=== PATIENT | female | born 1990 | race Caucasian/White ===

== ENCOUNTER 2017-06-26 07:32 | Emergency (ER) | payer OTHER ==
[2017-06-26 07:47] VITALS: BMI 34.4
[2017-06-26 10:19] LABS: BASO % 0.4 % (0-2.0); EOS % 0.7 % (0-4.5); MCH 29.8 pg (25.7-33.7); MCHC 33.7 g/dl (32.0-36.0); MEAN CELL VOLUME 88.4 fl (80-96); MEAN PLT VOLUME 9.4 fl (7.5-11.1); NEUT % 76.2 % (42.8-82.8); PLATELET COUNT 231 K/MM3 (134-434); RDW 13.1 % (11.6-15.6)
--- NOTE | 2017-06-26 10:23 | PDOC ---
History of Present Illness - General Chief Complaint: Pain, Acute Stated Complaint: GENERALIZED PAIN/ Time Seen by Provider: 06/26/17 09:07 - History of Present Illness Initial Comments: 06/26/17 10:17 "The patient is a 26 year old female , with no significant past medical history who presents to the emergency department with lower right abdominal pain for about 4 days. The patient reports her pain is worse with walking and is often sharp in nature. The patient notes her LMP was in December, but she is normally very irregular. Pt had positive UPT this Friday and has not had any care yet. She denies any vaginal bleeding. She denies recent fevers, chills, headache or dizziness. She denies recent nausea, vomit, diarrhea or constipation. She denies recent dysuria, frequency, urgency or hematuria. She denies recent chest pain or shortness of breath. Allergies: NKA Past surgical history: appendectomy 1 year ago Social history: Nonsmoker. Denies EtOH use and recreational drug use. Past History - Past Medical History Allergies/Adverse Reactions: Allergies Allergy/AdvReac Type Severity Reaction Status Date / Time Penicillins Allergy Verified 06/26/17 07:41 Home Medications: Ambulatory Orders NK [No Known Home Medication] 06/26/17 COPD: No - Surgical History Appendectomy: Yes - Reproductive History Is Patient Now?: Yes (#): 1 Para: 0 Therapeutic (s) & number: No Spontaneous : 0 - Immunization History Immunization Up to Date: Yes - Suicide/Smoking/Psychosocial Hx Smoking History: Never smoked Have you smoked in the past 12 months: No Number of Cigarettes Smoked Daily: 2 Information on smoking cessation initiated: No 'Breaking Loose' booklet given: 08/30/15 Hx Alcohol Use: No Drug/Substance Use Hx: No Substance Use Type: None Hx Substance Use Treatment: No Review of Systems - Review of Systems Comments:: 06/26/17 10:18 "GENERAL/CONSTITUTIONAL: No fever or chills. No weakness. HEAD, EYES, EARS, NOSE AND THROAT: No change in vision. No ear pain or discharge. No sore throat. CARDIOVASCULAR: No chest pain or shortness of breath. RESPIRATORY: No cough, wheezing, or hemoptysis. GASTROINTESTINAL: +right abdominal pain. No nausea, vomiting, diarrhea or constipation. GENITOURINARY: No dysuria, frequency, or change in urination. MUSCULOSKELETAL: No joint or muscle swelling or pain. No neck or back pain. SKIN: No rash NEUROLOGIC: No headache, vertigo, loss of consciousness, or change in strength/ sensation. ENDOCRINE: No increased thirst. No abnormal weight change. HEMATOLOGIC/LYMPHATIC: No anemia, easy bleeding, or history of blood clots. ALLERGIC/IMMUNOLOGIC: No hives or skin allergy. " *Physical Exam - Vital Signs Last Vital Signs Temp Pulse Resp BP Pulse Ox 98.4 F 83 16 126/58 98 06/26/17 07:42 06/26/17 07:42 06/26/17 07:42 06/26/17 07:42 06/26/17 07:42 - Physical Exam Comments: 06/26/17 10:18 "GENERAL: Awake, alert, and fully oriented, in no acute distress HEAD: No signs of trauma EYES: PERRLA, EOMI, sclera anicteric, conjunctiva clear ENT: Auricles normal inspection, hearing grossly normal, nares patent, oropharynx clear without exudates. Moist mucosa NECK: Nontender, no stepoffs, Normal ROM, supple, no lymphadenopathy, JVD, or masses LUNGS: Breath sounds equal, clear to auscultation bilaterally. No wheezes, and no crackles HEART: Regular rate and rhythm, normal S1 and S2, no murmurs, rubs or gallops ABDOMEN: + RLQ tenderness, negative ross's, normoactive bowel sounds. No guarding, no rebound. No masses : no CMT, no CVAT, os closed, no bleeding or discharge EXTREMITIES: Normal range of motion, no edema. No clubbing or cyanosis. No cords, erythema, or tenderness NEUROLOGICAL: Cranial nerves II through XII intact. 5/5 strength and sensation in all extremities, Normal speech, normal gait SKIN: Warm, Dry, normal turgor, no rashes or lesions noted. " ED Treatment Course - LABORATORY CBC & Chemistry Diagram: 06/26/17 10:10 06/26/17 10:10 - RADIOLOGY Radiology Studies Ordered: Category Date Time Status TRANSVAGINAL ULTRASOUND US [US] Stat Ultrasound 06/26/17 09:33 Ordered Medical Decision Making - Medical Decision Making 06/26/17 10:20 26 F with positive UPT at home, unknown gestational age, presenting with lower abdominal pain and mild RLQ tenderness. Pt reports prior appendectomy 1 year ago. Will r/o ectopic with TVUS. - Labs, T&S, beta HCG - TVUS - UA, UCx - OB f/u 06/26/17 11:20 US shows single IUP at 24 weeks gestation. Pt informed of results. Agrees to f/u with grocery packer for care, as this is a desired . Pt to be sent to L&D for heart monitoring, non-stress test I discussed the physical exam findings, ancillary test results and final diagnoses with the patient. I answered all of the patient's questions. The patient was satisfied with the care received and felt comfortable with the discharge plan and treatment plan. The patient agrees to follow up with the primary care physician within 24-72 hours. *DC/Admit/Observation/Transfer Diagnosis at time of Disposition: Abdominal pain during - Discharge Dispostion Disposition: HOME Condition at time of disposition: Stable - Referrals Referrals: Venecia Sams MD [Staff Physician] - Amilcar Epstein MD [Staff Physician] - - Patient Instructions Printed Discharge Instructions: DI for -- Discomforts and Remedies Additional Instructions: Your ultrasound showed that you are 24 weeks . You MUST follow up with an grocery packer to have proper care. Please report immediately to the labor and delivery floor NOW to have your baby monitored. If you experience worsening pain, bleeding, or any other concerning symptoms, return to the ER immediately. Otherwise, follow up with an grocery packer within 1 week. Call the number provided to make an appointment with our clinic. discharge to home follow up for care at [facility] - appointment made Wednesday 07/04 at 1000 - Post Discharge Activity - Attestations Physician Attestion: 06/26/17 11:29 I, Dr. Ji Saeed MD, attest that this document has been prepared under my direction and personally reviewed by me in its entirety. I further attest, that it accurately reflects all work, treatment, procedures and medical decision -making performed by me.
[2017-06-26 10:38] LABS: ALBUMIN 2.9 g/dl (3.4-5.0); ALK PHOS 63 U/L (45-117); ANION GAP 9 (8-16); BILIRUBIN,TOTAL 0.2 mg/dL (0.2-1.0); CALCIUM 8.4 mg/dL (8.5-10.1); CO2 23 mmol/L (21-32); CREATININE 0.4 mg/dL (0.55-1.02); GLUCOSE,RANDOM 81 mg/dL (74-106); SGOT/AST 14 U/L (15-37); SGPT/ALT 21 U/L (12-78); TOT PROT 6.6 g/dl (6.4-8.2)
[2017-06-26 11:46] LABS: URINE APPEARANCE SLCLOUDY; URINE BILIRUBIN NEGATIVE (NEGATIVE); URINE BLOOD NEGATIVE (NEGATIVE); URINE COLOR YELLOW; URINE GLUCOSE (UA) NEGATIVE (NEGATIVE); URINE KETONE NEGATIVE (NEGATIVE); URINE LEUK ESTERASE NEGATIVE (NEGATIVE); URINE NITRITE NEGATIVE (NEGATIVE); URINE PROTEIN NEGATIVE (NEGATIVE); URINE UROBILINOGEN NEGATIVE mg/dL (0.2-1.0)
[2017-06-26 13:13] VITALS: BP 130/60; PULSE 85; TEMP 98.2
[2017-06-26 14:09] LABS: URINE LEUK ESTERASE Negative (NEGATIVE)
== END 2017-06-26 13:00 | disposition home or self-care (01) ==
LOC: JER 07:32
CPT/HCPCS: 36415; 76815-TC; 80053; 81003; 84702; 85025; 86850; 86900; 86901; 87086; 99283-25

== ENCOUNTER 2017-10-13 14:15 | Inpatient (IN) | payer OTHER ==
[2017-10-13] MEDS: DEXTROSE 5%-LACTATED RINGERS 1,000 ML IV SCH (14:45)
[2017-10-13] MEDS ORDERED: CLINDAMYCIN PHOSPHATE 600 MG/4 ML VIAL ONE ×2 (15:16→15:17)
[2017-10-13] MEDS ORDERED: CLINDAMYCIN 900 MG PREMIX IVPB 900 MG/50 ML BAG IVPB ONE (15:30)
[2017-10-13 15:36] LABS: BASO % 0.2 % (0-2.0); EOS % 0.7 % (0-4.5); HEMATOCRIT 33.9 % (32.4-45.2); HEMOGLOBIN 11.7 GM/dL (10.7-15.3); LYMPH % 13.7 % (8-40); MCH 30.1 pg (25.7-33.7); MCHC 34.5 g/dl (32.0-36.0); MEAN CELL VOLUME 87.3 fl (80-96); MEAN PLT VOLUME 9.8 fl (7.5-11.1); MONO % 6.6 % (3.8-10.2); NEUT % 78.8 % (42.8-82.8); PLATELET COUNT 243 K/MM3 (134-434); RBC 3.88 M/mm3 (3.60-5.2); RDW 13.1 % (11.6-15.6)
[2017-10-13 15:50] LABS: INR 0.94 (0.82-1.09); PROTHROMBIN TIME (PATIENT) 10.6 SEC (9.98-11.88)
[2017-10-13 15:52] LABS: ACTIVATED PTT 24.9 SECONDS (26.9-34.4)
[2017-10-13 15:56] VITALS: BMI 38.5
[2017-10-13 15:57] LABS: ANION GAP 7 (8-16); BLOOD UREA NITROGEN 8 mg/dL (7-18); CALCIUM 8.9 mg/dL (8.5-10.1); CHLORIDE 109 mmol/L (98-107); CO2 23 mmol/L (21-32); CREATININE 0.5 mg/dL (0.55-1.02); GLUCOSE,RANDOM 122 mg/dL (74-106); POTASSIUM 3.6 mmol/L (3.5-5.1); SODIUM 139 mmol/L (136-145)
[2017-10-13 17:01] LABS: COCAINE, UR NEGATIVE ng/ml (CUTOFF=300); METHADONE, UR NEGATIVE ng/ml (CUTOFF=300); OPIATES, URI NEGATIVE ng/ml (CUTOFF=300); PHENCYCLIDINE,URINE NEGATIVE ng/ml (CUTOFF=25); URINE AMPHETAMINES NEGATIVE ng/ml (CUTOFF=500); URINE BARBITURATES NEGATIVE ng/ml (CUTOFF=200); URINE BENZODIAZEPINES NEGATIVE ng/ml (CUTOFF=200)
[2017-10-13] MEDS ORDERED: PROMETHAZINE HCL 25 MG/1 ML VIAL IVPB ONE (21:00)
[2017-10-13] MEDS ORDERED: BUTORPHANOL TARTRATE 1 MG/ML VIAL IVPB ONE (21:00)
[2017-10-13] MEDS ORDERED: DINOPROSTONE 10 MG VAGINAL SUPPOSITORY VG ONE (21:01)
--- NOTE | 2017-10-13 21:10 | HP ---
Admitting History and Physical - Admission Chief Complaint: srom, 3 pm, gbs pos, History of Present Illness: 27 y/o P0 at 39 plus weeks comes this after noon with srom at 130 pm. She is a late registrant at 30 weeks. Thus far, pnc has been fine. She is gbs pos and received clinda x 2 now. Examined and 2cm, long--will place cervidil. r/b given. 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: Alzheimer's, CVA, Dementia, Migraine, Multiple Sclerosis, Peripheral Neuropathy, Parkinson's, Seizure, Syncope, TIA, Vertigo, Other Cardiovascular: No: AFIB, Aneurysm, Aortic Insufficiency, Aortic Stenosis, CAD, CHF, Deep Vein Thrombosis, HTN, Hyperlipdemia, [place], Mitral Insufficiency, Mitral Stenosis, Murmur, Pulmonary Hypertension, Other Pulmonary: No: Asthma, Bronchitis, Cancer, COPD, O2 Dependent, Pneumonia, Previously Intubated, Pulmonary Embolus, Pulmonary Fibrosis, Sleep Apnea, Other Hepatobiliary: No: Cirrhosis, Cholelithiasis, Cholecystitis, Choledocholithiasis , Hepatitis A, Hepatitis B, Hepatitis C, Other Renal/: No: Renal Failure, Renal Inusuff, BPH, Cancer, Hematuria, Hemodialysis , Neurogenic Bladder, Renal Calculi, UTI, Other ...LMP: 01/04/15 ...: 2 ...Para: 0 Heme/Onc: No: Anemia, B12 Deficiency, Bleeding Disorder, Cancer, Current Chemotherapy, Current Radiation Therapy, Hemochromatosis, Hypercoaguable State, Myeloproliferative Synd, Sickle Cell Disease, Sickle Cell Trait, Thrombocytopenia, Other Infectious Disease: No: AIDS, C-Diff, Herpes Zoster, HIV, MRSA, STD's, Tuberculosis, VREF, Other Psych: No: Addictions, Anxiety, Bipolar, Depression, Panic, Psychosis, Schizophrenia, Other Musculoskeletal: Yes: Other (fracture to right ankle as a youth). No: Bursitis , Chronic low back pain, Hemiparesis, Hemiplegia, Osteoarthritis, Paraplegia Rheumatology: No: Fibromyalgia, Gout, Lupus, Rheumatoid Arthritis, Sarcoidosis, Vasculitis, Other Endocrine: No: Roberto's Disease, Bayside's Disease, Diabetes Insipidus, Diabetes Mellitus, Hyperparathyroidism, Hyperthyroidism, Hypothyroidism, Osteopenia, SIADH, Other Dermatology: No: Basal Cell, Cellulitis, Eczema, Melanoma, Psoriasis, Squamous Cell, Other - Past Surgical History Past Surgical History: Yes: None - Advance Directives Advance Directives: No: Living Will, Health Care Proxy, DNR, Organ Donor, Tissue Donor, MOLST - Smoking History Smoking history: Never smoked Have you smoked in the past 12 months: No Aproximately how many cigarettes per day: 2 - Alcohol/Substance Use Hx Alcohol Use: No Home Medications - Allergies Allergies/Adverse Reactions: Allergies Allergy/AdvReac Type Severity Reaction Status Date / Time Penicillins Allergy Verified 10/13/17 17:25 - Home Medications Home Medications: Ambulatory Orders Ferrous Sulfate [Iron] 325 mg PO DAILY 10/13/17 Vitamins (Sjr) - 1 tab PO DAILY 10/13/17 Review of Systems - Review of Systems Constitutional: reports: No Symptoms Eyes: reports: No Symptoms HENT: reports: No Symptoms Neck: reports: No Symptoms Cardiovascular: reports: No Symptoms Respiratory: reports: No Symptoms Gastrointestinal: reports: No Symptoms Genitourinary: reports: No Symptoms Breasts: reports: No Symptoms Reported Musculoskeletal: reports: No Symptoms Integumentary: reports: No Symptoms Neurological: reports: No Symptoms Endocrine: reports: No Symptoms Hematology/Lymphatic: reports: No Symptoms Physical Examination Vital Signs: Vital Signs Temperature 98.4 F 10/13/17 20:00 Pulse Rate 100 H 10/13/17 20:00 Respiratory Rate 18 10/13/17 20:00 Blood Pressure 112/55 10/13/17 20:00 O2 Sat by Pulse Oximetry (%) Constitutional: Yes: Well Nourished Eyes: Yes: WNL HENT: Yes: WNL Neck: Yes: WNL Cardiovascular: Yes: WNL Respiratory: Yes: WNL Gastrointestinal: Yes: WNL ...Rectal Exam: Yes: WNL Breast(s): Yes: WNL Musculoskeletal: Yes: WNL Extremities: Yes: WNL Integumentary: Yes: WNL Neurological: Yes: WNL ...Motor Strength: WNL (exam 2 cm, long/-3 cat 1) Labs: CBC, BMP 10/13/17 15:20 10/13/17 15:20 Assessment/Plan as above cervidil placed 9pm continue protocol
[2017-10-13] MEDS: CLINDAMYCIN 600MG PREMIX IVPB 600 MG/50 ML BAG IVPB SCH (21:45)
[2017-10-14] MEDS ORDERED: DEXTROSE 5%-LACTATED RINGERS 1,000 ML IV ONE (01:00)
[2017-10-14] MEDS ORDERED: BUTORPHANOL TARTRATE 1 MG/ML VIAL ONE ×4 (01:41→08:07)
[2017-10-14] MEDS ORDERED: PROMETHAZINE HCL 25 MG/1 ML VIAL ONE ×2 (01:42→08:07)
[2017-10-14] MEDS: CLINDAMYCIN 600MG PREMIX IVPB 600 MG/50 ML BAG IVPB SCH ×3 (03:45→18:11)
[2017-10-14] MEDS ORDERED: PROMETHAZINE HCL 25 MG/1 ML VIAL IVPB ONE (06:20)
[2017-10-14] MEDS ORDERED: BUTORPHANOL TARTRATE 1 MG/ML VIAL IVPB ONE (06:20)
[2017-10-14] MEDS ORDERED: FENTANYL/BUPIVACAINE/NS/PF - PCEA - 50 ML DISP.SYRIN EP ONE ×2 (07:55→10:35)
[2017-10-14] MEDS ORDERED: BUPIVACAINE HCL/PF 0.25% (2.5MG/ML) 10 ML VIAL ONE (07:57)
[2017-10-14] MEDS ORDERED: LIDO 2%/EPI 1:200000 PRESRVFRE (20 ML SDVIAL) ONE (07:58)
[2017-10-14] MEDS ORDERED: ELECTROLYTE-148 SOLN 1,000 ML IV ONE (08:00)
[2017-10-14] MEDS: DEXTROSE 5%-LACTATED RINGERS 1,000 ML IV SCH (08:30)
[2017-10-14] MEDS ORDERED: OXYTOCIN 30 UNITS in 0.9% NS 30 UNIT/500 ML INFUS.BAG IVPB ONE (08:30)
--- NOTE | 2017-10-14 10:35 | PN ---
Progress Note (short form) - Note Progress Note: cx 6 cm 80 vx -1 mr, fhr cat 1, wants epidural, contraction q 3 min
[2017-10-14] MEDS ORDERED: ELECTROLYTE-148 SOLN 1,000 ML IV SCH (10:45)
[2017-10-14] MEDS ORDERED: NALOXONE HCL 0.4 MG/ML VIAL IVPUSH PRN (12:56)
--- NOTE | 2017-10-14 12:59 | PN ---
Progress Note (short form) - Note Progress Note: cx 8 cm 100 vx 0, fhr cat1, regular contraction
[2017-10-14] MEDS ORDERED: FENTANYL/BUPIVACAINE/NS/PF - PCEA - 50 ML DISP.SYRIN EP SCH ×2 (13:00→13:28)
[2017-10-14] MEDS ORDERED: LIDOCAINE HCL 1% PRESERVATIVE FREE - 30ML VIAL ONE (15:07)
[2017-10-14] MEDS ORDERED: oxyCODONE HCL 5 MG TABLET PO PRN (15:34)
[2017-10-14] MEDS ORDERED: BENZOCAINE 20% 57 GM BOTTLE TP PRN (15:34)
[2017-10-14] MEDS ORDERED: METHYLERGONOVINE MALEATE 0.2 MG/1 ML AMP IM PRN (15:34)
[2017-10-14] MEDS ORDERED: WITCH HAZEL 50% (TUCKS) 40 PAD/JAR PAD TP PRN (15:34)
[2017-10-14] MEDS ORDERED: BENZOCAINE 28 GM HEMORRHOIDAL OINTMENT TP PRN (15:34)
[2017-10-14] MEDS ORDERED: BISACODYL 10 MG SUPP.RECT RC PRN (15:34)
[2017-10-14] MEDS ORDERED: D5W-LR W/ 20 UNITS OXYTOCIN 1,000 ML IV SCH (15:45)
[2017-10-14] MEDS ORDERED: OXYTOCIN 20 UNITS in 0.9% NS 20 UNIT/1,000 ML INFUS.BAG IV SCH (15:45)
[2017-10-14] MEDS ORDERED: IBUPROFEN 600 MG TABLET (FP) PO ONE (15:53)
[2017-10-14] MEDS ORDERED: ACETAMINOPHEN 325 MG TABLET (FP) ONE (15:54)
[2017-10-14 16:15] LABS: ARTERIAL BLOOD GAS BASE EXCESS -4.4 meq/l (-2-2); ARTERIAL BLOOD GAS PCO2 41.7 mmHg (35-45); ARTERIAL BLOOD GAS pH 7.32 (7.35-7.45)
[2017-10-14 16:19] LABS: ARTERIAL BLD GAS O2 SATURATION 53.5 % (90-98.9); ARTERIAL BLOOD GAS PO2 24.2 mmHg (80-100)
[2017-10-14 16:24] LABS: VENOUS PC02 53.5 mmHg (38-52)
[2017-10-14 16:25] LABS: VENOUS PH 7.23 (7.32-7.42)
[2017-10-14] MEDS: ACETAMINOPHEN 325 MG TABLET (FP) PO PRN (16:25)
[2017-10-14] MEDS: IBUPROFEN 600 MG TABLET (FP) PO PRN (16:25)
[2017-10-14] MEDS: FERROUS SO4 325 MG TABLET (FP) PO SCH (17:58)
[2017-10-15] MEDS: ACETAMINOPHEN 325 MG TABLET (FP) PO PRN ×5 (01:01→18:57)
[2017-10-15] MEDS: IBUPROFEN 600 MG TABLET (FP) PO PRN ×5 (01:02→18:55)
[2017-10-15] MEDS: FERROUS SO4 325 MG TABLET (FP) PO SCH ×2 (08:07→18:57)
[2017-10-15 09:00] LABS: BASO % 0.4 % (0-2.0); EOS % 0.6 % (0-4.5); HEMATOCRIT 34.5 % (32.4-45.2); HEMOGLOBIN 11.4 GM/dL (10.7-15.3); LYMPH % 21.1 % (8-40); MCH 29.4 pg (25.7-33.7); MCHC 33.2 g/dl (32.0-36.0); MEAN CELL VOLUME 88.7 fl (80-96); MEAN PLT VOLUME 9.6 fl (7.5-11.1); MONO % 4.6 % (3.8-10.2); NEUT % 73.3 % (42.8-82.8); PLATELET COUNT 238 K/MM3 (134-434); RBC 3.88 M/mm3 (3.60-5.2); RDW 13.8 % (11.6-15.6); WHITE BLOOD COUNT 13.7 K/mm3 (4.0-10.0)
[2017-10-15] MEDS: PRENATAL VITAMINS W/ FOLIC ACID TABLET (FP) PO SCH (09:47)
[2017-10-15] MEDS ORDERED: SENNOSIDES/DOCUSATE COMBO (SENNA PLUS) TABLET (UD) PO PRN (22:00)
[2017-10-16] MEDS: ACETAMINOPHEN 325 MG TABLET (FP) PO PRN ×3 (02:22→14:02)
[2017-10-16] MEDS: IBUPROFEN 600 MG TABLET (FP) PO PRN ×2 (02:22→08:12)
[2017-10-16] MEDS: FERROUS SO4 325 MG TABLET (FP) PO SCH ×2 (08:10→17:08)
[2017-10-16] MEDS: PRENATAL VITAMINS W/ FOLIC ACID TABLET (FP) PO SCH (10:48)
[2017-10-16 12:36] VITALS: BP 125/63; PULSE 78; TEMP 98.2
--- NOTE | 2017-10-16 14:04 | DS ---
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: Vital Signs Temperature 98.2 F 10/16/17 12:35 Pulse Rate 78 10/16/17 12:35 Respiratory Rate 20 10/16/17 10:00 Blood Pressure 125/63 10/16/17 12:35 O2 Sat by Pulse Oximetry (%) 98 10/14/17 15:00 Constitutional: Yes: Well Nourished, No Distress, Calm Eyes: Yes: WNL, Conjunctiva Clear, EOM Intact HENT: Yes: WNL, Atraumatic, Normocephalic Neck: Yes: WNL, Supple, Trachea Midline Cardiovascular: Yes: WNL, Regular Rate and Rhythm Respiratory: Yes: WNL, Regular, CTA Bilaterally Gastrointestinal: Yes: WNL ...Rectal Exam: Yes: WNL Renal/: Yes: WNL ....Post : Yes: Uterus firm, Uterus non-tender, Slight lochia rubra Breast(s): Yes: WNL Musculoskeletal: Yes: WNL Extremities: Yes: WNL Edema: Yes Edema: LLE: Trace, RLE: Trace Integumentary: Yes: WNL Neurological: Yes: WNL, Alert, Oriented ...Motor Strength: WNL Psychiatric: Yes: WNL, Alert, Oriented Labs: CBC, BMP 10/15/17 08:00 10/13/17 15:20 Delivery - Delivery Vaginal Delivery: Spontaneous (no complication) Type of Anesthesia: Epidural Episiotomy/Laceration: Right Mediolateral EBL (cc): 300 Delivery, Single - Stages of Labor Date 1st Stage Initiatied: 10/14/17 Time 1st Stage Initiated: 02:00 Date 2nd Stage Initiated: 10/14/17 Time 2nd Stage Initiated: 14:10 Date of Delivery: 10/14/17 Time of Delivery: 15:19 Time Placenta Delivered: 15:25 Placenta: Yes: Spontaneous - Condition of Preventive Medicine Physician/Cigar Packer Present: No Gender: Male Weight: 6 lb 14 oz Position: Left, OA Total Hours ROM (Hrs/Mins): 25h 39m - 1 Minute Total Score: 9 5 Minutes Total Score: 9 - Feeding Plan Initial Plan: Elected not to breastfeed exclusively throughout hospitalization Discharge Summary Reason For Visit: LABOR Procedures: Principal: Hospital Course: not complicated Condition: Good - Instructions Diet, Activity, Other Instructions: return to clinic in 4-6 weeks. call [facility] for appointment. [phone] Disposition: HOME - Home Medications Comprehensive Discharge Medication List: Ambulatory Orders Ferrous Sulfate [Iron] 325 mg PO DAILY 10/13/17 Vitamins (Sjr) - 1 tab PO DAILY 10/13/17
== END 2017-10-16 18:42 | disposition home or self-care (01) | DRG 560 ==
LOC: JLDR 14:15 → J3W 10-14 17:28
PROVIDERS: ADMIT Obstetrics & Gynecology; ATTEND Obstetrics & Gynecology
PROC: 3E0P7VZ Introduction of Hormone into Female Reproductive, Via Natural or Artificial Opening (ICD-10-PCS; 2017-10-13)
PROC: 10E0XZZ Delivery of Products of Conception, External Approach (ICD-10-PCS; principal; 2017-10-14)
PROC: 0W8NXZZ Division of Female Perineum, External Approach (ICD-10-PCS; 2017-10-14)
DX: O80 Encounter for full-term uncomplicated delivery (principal); Z22.330 Carrier of Group B streptococcus; Z3A.39 39 weeks gestation of pregnancy; Z37.0 Single live birth
CPT/HCPCS: 36415; 36600; 59409; 80048; 80307; 82803; 85025; 85610; 85730; 86593; 86850; 86900; 86901

== ENCOUNTER 2018-10-05 09:06 | Emergency (ER) | payer SELFPAY ==
[2018-10-05 09:27] VITALS: BP 112/65; PULSE 87; TEMP 98.1; BMI 35.4
[2018-10-05] MEDS ORDERED: ACETAMINOPHEN 325 MG TABLET (FP) PO ONE (10:04)
--- NOTE | 2018-10-05 10:17 | PDOC ---
Attending Attestation - Resident Resident Name: Yumiko Swartz - ED Attending Attestation I have performed the following: I have examined & evaluated the patient, The case was reviewed & discussed with the resident, I agree w/resident's findings & plan, Exceptions are as noted - HPI HPI: 10/05/18 10:17 28 yo F presenting to the ER with a complaint of pelvic pain x 2 weeks Located in the lower abdomen, worse with attempting to void or have a bowel movement No fevers or chills No dysuria or malodorous urine No nausea or vomiting Pt thought her pain might be due to IUD She was seen in [facility] last week and IUD was removed (she was last sexually active l week ago, pain was 06/15, treated with motrin and warm bath) No prior episodes like this 10/05/18 10:30 - Physicial Exam PE: 10/05/18 10:11 GENERAL: The patient is in no acute distress. ENT: Ears normal, nares patent, oropharynx clear without exudates. Moist mucous membranes. NECK: Normal range of motion, supple, no nuchal rigidity LUNGS: Breath sounds equal, clear to auscultation bilaterally. No wheezes, and no crackles. HEART:Regular rate and rhythm, normal S1 and S2 without murmur, rub or gallop. ABDOMEN: Soft, nontender, suprapubic tenderness to palpation PELVIC EXAM: per Dr Swartz EXTREMITIES: Normal range of motion, no edema. NEUROLOGICAL: Cranial nerves II through XII grossly intact. Normal speech. No focal neurological deficits. SKIN: Warm, Dry, normal turgor, no rashes or lesions noted. 10/05/18 10:33 - Medical Decision Making 10/05/18 10:33 Pt presents with pelvic pain DD includes but is not limited to: UTI, Ruptured ovarian cyst, pelvic fluid, Less likely appendicitis given chronicity of symptoms Less likely PID with no reported CMT Will do: Labs UA TV US Will re assess 10/05/18 11:07 Laboratory Tests 10/05/18 10/05/18 10/05/18 10:14 10:14 10:35 WBC 9.4 Hgb 12.3 Hct 36.8 Plt Count 248 BUN 10 Creatinine 0.6 Urine Blood Negative Urine Nitrite Negative Ur Leukocyte Esterase Negative TV-US pending 10/05/18 13:01 US right ovarian cyst, Left ovarian cyst No free fluid No torsion Will discharge to home 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 We check your blood work and urine which did not show any abnormalities. We also did imaging which did not show anything abnormal. We will give you a call and let you know if the cultures show any signs of an infection growing. Please take tylenol or Motrin for the pain, do not exceed the maximum dose as stated on the bottle. We found that you have hemorrhoids, to treat this you can buy creams from the pharmacy such as [facility]. Please make an appointment to follow up with an OBGYN, the referral will be provided for you. Please return to the Emergency Department if you have any nausea, vomiting, blood in your urine, blood in your stool, chest pain, shortness of breath, fever or chills. - Post Discharge Activity
[2018-10-05] MEDS ORDERED: ACETAMINOPHEN 325 MG TABLET (FP) ONE (10:23)
[2018-10-05 10:27] LABS: HEMATOCRIT 36.8 % (32.4-45.2); HEMOGLOBIN 12.3 GM/dL (10.7-15.3); MCH 28.7 pg (25.7-33.7); MCHC 33.3 g/dl (32.0-36.0); MEAN CELL VOLUME 86.4 fl (80-96); MEAN PLT VOLUME 9.6 fl (7.5-11.1); PLATELET COUNT 248 K/MM3 (134-434); RBC 4.26 M/mm3 (3.60-5.2); RDW 14.4 % (11.6-15.6); WHITE BLOOD COUNT 9.4 K/mm3 (4.0-10.0)
[2018-10-05 10:48] LABS: URINE APPEARANCE CLEAR; URINE BILIRUBIN NEGATIVE (NEGATIVE); URINE COLOR YELLOW; URINE GLUCOSE (UA) NEGATIVE (NEGATIVE); URINE KETONE TRACE (NEGATIVE); URINE LEUK ESTERASE NEGATIVE (NEGATIVE); URINE NITRITE NEGATIVE (NEGATIVE); URINE PROTEIN NEGATIVE (NEGATIVE)
[2018-10-05 10:59] LABS: ALBUMIN 3.4 g/dl (3.4-5.0); ALK PHOS 57 U/L (45-117); ANION GAP 4 MMOL/L (8-16); BILIRUBIN,TOTAL 0.5 mg/dL (0.2-1); BLOOD UREA NITROGEN 10 mg/dL (7-18); CALCIUM 8.6 mg/dL (8.5-10.1); CHLORIDE 108 mmol/L (98-107); CO2 24 mmol/L (21-32); CREATININE 0.6 mg/dL (0.55-1.3); GLUCOSE,RANDOM 120 mg/dL (74-106); POTASSIUM 3.8 mmol/L (3.5-5.1); SGOT/AST 15 U/L (15-37); SGPT/ALT 16 U/L (13-61); SODIUM 136 mmol/L (136-145); TOT PROT 7.1 g/dl (6.4-8.2)
--- NOTE | 2018-10-05 11:00 | PDOC ---
History of Present Illness - General Chief Complaint: Vaginal Sxs Stated Complaint: ABD PAIN Time Seen by Provider: 10/05/18 09:34 - History of Present Illness Initial Comments: 10/05/18 10:52 Patient is a 28 y/o female with no past medical history who presents for vaginal discomfort, urinary burning, and discomfort with defecating. Patient has been having these symptoms for the last two weeks. She first noticed it after she had cramping after having sex. A few days later she had sex again and had vaginal pain. Last friday she had her IUD taken out thinking it might be causing some of her symptoms. She reports that when she is urinating she has burning, but notes no hematuria or discharge. When she needs to defecate she notes it hurts when she strains but it also hurts when she is not straining. She denies past history of STD's. Denies fever, chills, nausea, vomiting, chest pain, or shortness of breath. Past History - Past Medical History Allergies/Adverse Reactions: Allergies Allergy/AdvReac Type Severity Reaction Status Date / Time Penicillins Allergy Verified 10/13/17 17:25 Home Medications: Ambulatory Orders NK [No Known Home Medication] 10/05/18 Asthma: No Cancer: No Cardiac Disorders: No COPD: No Diabetes: No HTN: No Seizures: No Thyroid Disease: No - Surgical History Appendectomy: Yes - Reproductive History (#): 1 Para: 0 Therapeutic (s) & number: No Spontaneous : 0 - Immunization History Immunization Up to Date: Yes - Suicide/Smoking/Psychosocial Hx Smoking History: Never smoked Have you smoked in the past 12 months: No Number of Cigarettes Smoked Daily: 2 Information on smoking cessation initiated: No 'Breaking Loose' booklet given: 08/30/15 Hx Alcohol Use: No Drug/Substance Use Hx: No Substance Use Type: None Hx Substance Use Treatment: No Review of Systems - Review of Systems Constitutional: No: Chills, Fever HEENTM: No: Eye Pain Respiratory: No: Cough, Shortness of Breath Cardiac (ROS): No: Chest Pain ABD/GI: No: Diarrhea, Nausea, Vomiting : Yes: Dysuria, Pain. No: Discharge, Frequency, Hematuria Musculoskeletal: No: Back Pain, Gout Neurological: No: Headache, Numbness *Physical Exam - Vital Signs Last Vital Signs Temp Pulse Resp BP Pulse Ox 98.1 F 87 18 112/65 99 10/05/18 09:22 10/05/18 09:22 10/05/18 09:22 10/05/18 09:22 10/05/18 09:22 - Physical Exam Comments: 10/05/18 10:57 GENERAL: A&O x3, no acute distress HEART: RRR, no murmurs, rubs, or gallops LUNGS: CTAL B/L ABDOMEN: soft, non tender, non distended : slight tenderness with finger inspection, no erythema or swelling noted, mild thin white discharge, no blood on glove RECTAL: external hemorrhoid, small internal felt, no blood on glove EXTREMITIES; no pitting edema SKIN: no skin ulcers or rashes noted ED Treatment Course - LABORATORY CBC & Chemistry Diagram: 10/05/18 10:14 10/05/18 10:14 - ADDITIONAL ORDERS Additional order review: 10/05/18 10:14 RBC 4.26 MCV 86.4 MCHC 33.3 RDW 14.4 MPV 9.6 - RADIOLOGY Radiology Studies Ordered: Category Date Time Status TRANSVAGINAL ULTRASOUND US [US] Stat Ultrasound 10/05/18 10:04 Ordered - Medications Given in the ED: ED Medications Discontinued Medications Generic Name Dose Route Start Last Admin Trade Name Freq PRN Reason Stop Dose Admin Acetaminophen 975 mg 10/05/18 10:04 10/05/18 10:24 Tylenol - PO 10/05/18 10:05 975 mg ONCE ONE Administration Medical Decision Making - Medical Decision Making 10/05/18 11:00 f/u CBC, CMP, UA, GC swab, vaginal culture tylenol for the pain Vaginal US 10/05/18 15:29 US showed two cysts, no abnormalitits LABS WNL, will f/u for cultures discussed with patient importance to follow up as an outpatient *DC/Admit/Observation/Transfer Diagnosis at time of Disposition: Vaginal pain - Discharge Dispostion Disposition: HOME Condition at time of disposition: Improved - Referrals Referrals: Venecia Sams MD [Staff Physician] - Gwen Hendrix MD [Staff Physician] - - Patient Instructions Printed Discharge Instructions: DI for Pelvic Pain, Chronic Pelvic Pain-Female Additional Instructions: You came to the emergency department for pain. We check your blood work and urine which did not show any abnormalities. We also did imaging which did not show anything abnormal. We will give you a call and let you know if the cultures show any signs of an infection growing. Please take tylenol or Motrin for the pain, do not exceed the maximum dose as stated on the bottle. We found that you have hemorrhoids, to treat this you can buy creams from the pharmacy such as [facility]. Please make an appointment to follow up with an OBGYN, the referral will be provided for you. Please return to the Emergency Department if you have any nausea, vomiting, blood in your urine, blood in your stool, chest pain, shortness of breath, fever or chills. - Post Discharge Activity
== END 2018-10-05 13:07 | disposition home or self-care (01) ==
LOC: JER 09:06
DX: R10.2 Pelvic and perineal pain (principal)
CPT/HCPCS: 36415; 76830-TC; 80053; 81003; 84703; 85027; 87070; 87205; 87491; 87591; 87661; 99282-25

== ENCOUNTER 2019-03-23 09:50 | Emergency (ER) | payer OTHER ==
[2019-03-23 10:03] VITALS: BP 117/78; PULSE 62; TEMP 98.5; BMI 35.4
--- NOTE | 2019-03-23 10:30 | PDOC ---
History of Present Illness - General Chief Complaint: Chest Pain Stated Complaint: CHEST PAIN Time Seen by Provider: 03/23/19 10:13 History Source: Patient Exam Limitations: No Limitations - History of Present Illness Initial Comments: 03/23/19 10:40 28 y/o female presents to the ED with c/o mid sternal chest tightness that began last night when lying down. The pt states pain initially started in the upper abd below the rib cage and then went up to her chest. pt states symptoms present x 2 hours and went away withut interventions. Pt denied associated s/s including n/v/dizziness/sob, or palpitations. Pt denies recent travel, illness, injury, or cough. The pt states diet varies ad last night had Wendys. Is this a multiple visit Asthma Patient?: No Timing/Duration: intermittent, resolved prior to arrival Severity: mild Associated Symptoms: reports: chest pain Past History - Travel Traveled outside of the country in the last 30 days: No Close contact w/someone who was outside of country & ill: No - Past Medical History Allergies/Adverse Reactions: Allergies Allergy/AdvReac Type Severity Reaction Status Date / Time Penicillins Allergy Verified 10/13/17 17:25 Home Medications: Ambulatory Orders metroNIDAZOLE [Flagyl -] 500 mg PO BID 7 Days #14 tablet 10/07/18 Asthma: No Cancer: No Cardiac Disorders: No COPD: No Diabetes: No HTN: No Seizures: No Thyroid Disease: No - Surgical History Appendectomy: Yes - Reproductive History (#): 1 Para: 0 Therapeutic (s) & number: No Spontaneous : 0 - Immunization History Immunization Up to Date: Yes - Suicide/Smoking/Psychosocial Hx Smoking History: Never smoked Have you smoked in the past 12 months: No Number of Cigarettes Smoked Daily: 2 Information on smoking cessation initiated: No 'Breaking Loose' booklet given: 08/30/15 Hx Alcohol Use: No Drug/Substance Use Hx: No Substance Use Type: None Hx Substance Use Treatment: No Patient Lives Alone: No Lives with/in: spouse/SO Review of Systems - Review of Systems Able to Perform ROS?: Yes Constitutional: No: Symptoms Reported HEENTM: No: Symptoms Reported Respiratory: No: Symptoms reported Cardiac (ROS): Yes: Chest Pain ABD/GI: No: Symptoms Reported : No: Symptoms Reported Musculoskeletal: No: Symptoms Reported Integumentary: No: Symptoms Reported Neurological: No: Symptoms reported Endocrine: No: Symptoms Reported Hematologic/Lymphatic: No: Symptoms Reported *Physical Exam - Vital Signs Last Vital Signs Temp Pulse Resp BP Pulse Ox 98.5 F 62 17 117/78 98 03/23/19 09:54 03/23/19 09:54 03/23/19 09:54 03/23/19 09:54 03/23/19 09:54 - Physical Exam General Appearance: Yes: Nourished, Appropriately Dressed. No: Apparent Distress HEENT: negative: Pale Conjunctivae Neck: positive: Normal Thyroid Respiratory/Chest: positive: Lungs Clear, Normal Breath Sounds. negative: Chest Tender, Respiratory Distress, Accessory Muscle Use Cardiovascular: positive: Regular Rhythm, Regular Rate. negative: Murmur Gastrointestinal/Abdominal: positive: Soft. negative: Tenderness Integumentary: positive: Normal Color, Warm, Moist Neurologic: positive: Motor Strength 5/5 (ambulatory) Heart Score/ECG Review - ECG Intrepretation Rhythm: Regular Rhythm (rate 58, rate 58. No st elevation depression , intervals are regular) Medical Decision Making - Medical Decision Making 03/23/19 10:48 CC: episodic chest pain last night x 2 hrs. Ate Homa's 1 hour before s/s began , No interventions taken and s/s resolved. Asymptomatic upon arrival ExaM: ekg reviewed, vss, no reproducible pain Plan: Discharge home with recommendations to avoid fried foods and this may have been likely do to reflux ( esophageal reflux) *DC/Admit/Observation/Transfer Diagnosis at time of Disposition: Chest pain - Discharge Dispostion Disposition: HOME Condition at time of disposition: Improved - Referrals - Patient Instructions Printed Discharge Instructions: DI for Atypical Chest Pain, Gastroesophageal Reflux Disease (Alternative Therapy) Additional Instructions: Please observe for recurrent symptoms and please avoid spicy, greasy, and fried foods. - Post Discharge Activity
--- NOTE | 2019-03-23 16:29 | EKG ---
Test Reason : Blood Pressure : / mmHG Vent. Rate : 058 BPM Atrial Rate : 058 BPM P-R Int : 104 ms QRS Dur : 092 ms QT Int : 404 ms P-R-T Axes : 025 008 021 degrees QTc Int : 396 ms POOR DATA QUALITY, INTERPRETATION MAY BE ADVERSELY AFFECTED SINUS BRADYCARDIA WITH SHORT WY OTHERWISE NORMAL ECG NO PREVIOUS ECGS AVAILABLE Confirmed by Christian Hoskins ([id number]) on 03/23/2019 4:28:37 PM Referred By: Confirmed By:Christian Hoskins
== END 2019-03-23 11:14 | disposition home or self-care (01) ==
LOC: JER 09:50
DX: R07.9 Chest pain, unspecified (principal)
CPT/HCPCS: 93005; 93010; 99282-25

== ENCOUNTER 2019-06-28 06:41 | Day surgery (SDC) | payer OTHER ==
[2019-06-25 08:53] VITALS: BMI 35.4
[2019-06-28] MEDS ORDERED: DEXAMETHASONE SOD PHOSPHATE 4 MG/1 ML VIAL ONE ×2 (07:16→09:44)
[2019-06-28] MEDS ORDERED: LIDOCAINE HCL 2% (20ML MULTI-DOSE VIAL) ONE (07:17)
[2019-06-28] MEDS ORDERED: PROPOFOL 20 ML ONE ×4 (08:23→09:07)
[2019-06-28] MEDS ORDERED: MIDAZOLAM HCL 2 MG/2 ML SINGLE DOSE VIAL ONE (08:23)
[2019-06-28] MEDS ORDERED: LIDOCAINE HCL/PF 2% SDV 5ML VIAL ONE (08:24)
[2019-06-28] MEDS ORDERED: LIDOCAINE HCL 2% (50ML VIAL) SQ ONE (08:49)
[2019-06-28] MEDS ORDERED: BUPIVACAINE HCL/PF 0.5% (5 MG/ML) 30 ML VIAL IJ ONE (08:49)
[2019-06-28] MEDS ORDERED: ACETAMINOPHEN 325 MG TABLET (FP) PO PRN (09:13)
[2019-06-28] MEDS ORDERED: ONDANSETRON 4 MG/2 ML VIAL IVPUSH PRN (09:13)
[2019-06-28] MEDS ORDERED: oxyCODONE HCL 5 MG TABLET PO PRN ×2 (09:13)
[2019-06-28] MEDS ORDERED: DEXAMETHASONE SOD PHOSPHATE 4 MG/1 ML VIAL NR ONE ×2 (09:33→09:49)
--- NOTE | 2019-06-28 10:33 | OP ---
Operative Note - Note: Operative Date: 06/28/19 Pre-Operative Diagnosis: Hammertoe 4 bilateral, 3 right foot Operation: Arthroplasty right 3rd and 4th toe, left 4th toe, k-wire fixation, tenotomy and capsulotomy Implants: 0.045 k-wires Surgeon: Deysi Caballero Labor Relations Specialist: Karl Smith Anesthesiologist/SPORTS TEAM MANAGER: Tati Ramirez Anesthesia: MAC Specimens Removed: Skin and bone Estimated Blood Loss (mls): 1 Operative Report Dictated: No
[2019-06-28 10:53] VITALS: TEMP 97.3
[2019-06-28 12:41] VITALS: BP 110/70; PULSE 68
--- NOTE | 2019-06-29 14:22 | PATH ---
Surgical Pathology Report Patient Name: BRANNON FRANK [facility]. Rec. #: [id number] /Age/Gender: 1990 (Age: 28) / F Account: [id number] Location: [facility] SURGICAL Taken: 06/28/2019 Received: 06/28/2019 Reported: 06/29/2019 Physicians: Deysi Caballero DPM Specimen(s) Received A: SKIN AND BONE, THIRD AND FOURTH TOES, FOOT, RIGHT B: SKIN AND BONE, FOURTH TOE, FOOT, LEFT Clinical History Bilateral hammertoe Final Diagnosis A. SKIN AND BONE, THIRD AND FOURTH TOES, FOOT, RIGHT, ARTHROPLASTY: BONE WITH FATTY MARROW. SKIN WITHOUT SIGNIFICANT PATHOLOGIC FINDINGS. B. SKIN AND BONE, FOURTH TOE, FOOT, LEFT, ARTHROPLASTY: BONE WITH FATTY MARROW. SKIN WITHOUT SIGNIFICANT PATHOLOGIC FINDINGS. Electronically Signed Yumiko Magaña M.D. Gross Description A. Received in formalin labeled "right foot skin and bones third and fourth toes," are 2 hutson-yellow portions of bone measuring 0.9 x 0.8 x 0.4 cm and 1.0 x 0.9 x 0.5 cm. Also received within the same container are 2 hutson, elliptical portions of skin measuring 2.2 x 0.3 cm and 2.6 x 0.4 cm. Funeral Attendant sections are submitted in one cassette, following decalcification. B. Received in formalin labeled "left foot skin and bone fourth toe," is a 3.0 x 0.3 cm huston, elliptical, unoriented portion of skin as well as a 0.9 x 0.8 x 0.5 cm hutson-yellow portion of bone. Funeral Attendant sections are submitted in one cassette, following decalcification. /06/28/2019 saudi/06/28/2019
== END 2019-06-28 12:40 | disposition home or self-care (01) ==
LOC: JASU-SURG 06:41
PROVIDERS: ATTEND Podiatrist Foot Surgery
PROC: 0SRP0JZ Replacement of Right Toe Phalangeal Joint with Synthetic Substitute, Open Approach (ICD-10-PCS; 2019-06-28)
PROC: 0SRP0JZ Replacement of Right Toe Phalangeal Joint with Synthetic Substitute, Open Approach (ICD-10-PCS; principal; 2019-06-28 08:30)
DX: M20.41 Other hammer toe(s) (acquired), right foot (principal); M20.42 Other hammer toe(s) (acquired), left foot
CPT/HCPCS: 73630-TC-LT; 73630-TC-RT-FY; 84703; 88304-TC; 88311-TC

== ENCOUNTER 2019-07-30 16:30 | Emergency (ER) | payer OTHER ==
[2019-07-30 16:49] VITALS: BMI 35.4
[2019-07-30] MEDS ORDERED: ONDANSETRON *ODT* 4 MG TABLET SL ONE (16:56)
--- NOTE | 2019-07-30 16:56 | PDOC ---
Rapid Medical Evaluation Chief Complaint: Nausea/Vomiting Medical Evaluation: Allergies Allergy/AdvReac Type Severity Reaction Status Date / Time Penicillins Allergy Verified 07/30/19 16:46 Vital Signs Temp Pulse Resp BP Pulse Ox 99 F 98 H 16 130/74 99 07/30/19 16:46 07/30/19 16:46 07/30/19 16:46 07/30/19 16:46 07/30/19 16:46 07/30/19 16:55 Pt c/o:n /v/d x 1 day Pt on brief exam:vss, in nad Pt ordered for: urine and zofran pt to proceed to the ED Discharge Disposition - Diagnosis Nausea vomiting and diarrhea - Discharge Dispostion Disposition: HOME Condition at time of disposition: Stable - Prescriptions Prescriptions: Ondansetron [Zofran *Odt*] 4 mg SL Q6H PRN #30 od.tablet PRN Reason: Nausea And/Or Vomiting - Referrals - Patient Instructions Printed Discharge Instructions: DI for Viral Gastroenteritis -- Adult, Gastroenteritis Diet Additional Instructions: Discharge Instructions: You were seen in the emergency department for nausea, vomiting, and diarrhea. Your symptoms are most likely caused by a viral infection, and you should feel better within a week without any additional treatment. Home Care and Follow Up: - You have been precribed a nausea medication called Zofran (ondansetron). This may be taken every 6 hours if needed for nausea and/or vomiting. - Make sure you are drinking plenty of fluids while you are sick. Increase your normal fluid intake. It is OK if you do not feel like eating as long as you are staying well hydrated - You may use medications such as acetaminophen (Tylenol) 650-1000mg or ibuprofen (Advil, Motrin) 400-600mg every 6 hours as needed for pain or fever over 101F - Make sure you are washing your hands frequently to prevent spreading the infection. - You should feel better within a week, though cough can sometimes last longer. If you are not feeling better in a week, follow up with your primary doctor. If you need to see a new doctor, you have been referred to the [facility] [place]. - Seek immediate care if you have worsening symptoms, you are unable to stay hydrated, you develop high fevers over 104F that do not come down with medication, or you have any other medical emergency. - Post Discharge Activity
[2019-07-30] MEDS ORDERED: ONDANSETRON 4 MG/2 ML VIAL IVPUSH ONE (17:34)
[2019-07-30] MEDS ORDERED: SODIUM CHLORIDE 0.9% 500 ML INFUS.BAG IV ONE (17:34)
[2019-07-30] MEDS ORDERED: FAMOTIDINE 20 MG/50 ML IVPB 20 MG/50 ML MG IVPB ONE ×2 (17:34→17:36)
--- NOTE | 2019-07-30 17:34 | PDOC ---
History of Present Illness - General Chief Complaint: Nausea/Vomiting Stated Complaint: VOMITING Time Seen by Provider: 07/30/19 16:56 - History of Present Illness Initial Comments: Susan Reyna is a 28yo otherwise healthy woman who presents with nausea, vomiting, diarrhea, and cramping abdominal pain since this morning. She states that yesterday when she went to bed, she was in her normal state of health. This morning, she had diffuse cramping pain when she woke. 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 She says that she was shivering during the early afternoon. She did also go to work in the afternoon as well but states that she started to have a headache and felt weak. Throughout the day, she also had 3 episodes of NBNB vomiting and 5 episodes of watery diarrhea. Ms Reyna has no known sick contacts, no recent travel, no change in diet or unusual foods, and does not feel she could be . Past History - Past Medical History Allergies/Adverse Reactions: Allergies Allergy/AdvReac Type Severity Reaction Status Date / Time Penicillins Allergy Verified 07/30/19 16:46 Home Medications: Ambulatory Orders Ondansetron [Zofran *Odt*] 4 mg SL Q6H PRN #30 od.tablet 07/30/19 Anemia: No Asthma: No Cancer: No Cardiac Disorders: No CVA: No COPD: No CHF: No Dementia: No Diabetes: No GI Disorders: No Disorders: No HTN: No Hypercholesterolemia: No Liver Disease: No Seizures: No Thyroid Disease: No - Surgical History Appendectomy: Yes - Reproductive History (#): 1 Para: 0 Therapeutic (s) & number: No Spontaneous : 0 - Immunization History Immunization Up to Date: Yes - Psycho Social/Smoking Cessation Hx Smoking History: Never smoked Have you smoked in the past 12 months: No Number of Cigarettes Smoked Daily: 0 'Breaking Loose' booklet given: 08/30/15 Hx Alcohol Use: Yes (occaassional) Drug/Substance Use Hx: No Substance Use Type: None Hx Substance Use Treatment: No Review of Systems - Review of Systems Comments:: General: No fevers, no chills, no weight or appetite change, no malaise HEENT: No changes in vision, no changes in hearing, no congestion, no sore throat CV: No chest pain, no palpitations, no LE edema Pulm: No SOB, no cough, no wheezing GI: See HPI : No frequency, no urgency, no dysuria Musc: No back pain, no joint swelling, no recent injury Skin: No rash, no lesions, no erythema Endo: No excessive thirst, no heat/cold intolerance Heme: No unusual bruising or bleeding, no swollen glands Neuro: No syncope, no numbness/tingling, no focal weakness Vasc: No claudication Psych: No recent change in mood, no SI or HI *Physical Exam - Vital Signs Last Vital Signs Temp Pulse Resp BP Pulse Ox 99 F 98 H 16 130/74 99 07/30/19 16:46 07/30/19 16:46 07/30/19 16:46 07/30/19 16:46 07/30/19 16:46 - Physical Exam General: Comfortable, no acute distress HEENT: Atraumatic, PERRL, EOMI, MMM, voice normal, normal neck ROM Cards: RRR, no murmur appreciated Pulm: Comfortable on room air, clear to auscultation bilaterally Abd: Soft, No tenderness w/ palpation though diffuse mild discomfort, nondistended, no rigidity, no guarding Ext: Atraumatic. No LE edema. ROM intact. WWP Skin: Normal color, no rashes or lesions Neuro: A&Ox3, CN grossly intact, normal speech, motor/sensory grossly intact and symmetric Psych: Mood appropriate to situation ED Treatment Course - LABORATORY CBC & Chemistry Diagram: 07/30/19 17:29 07/30/19 17:29 Medical Decision Making - Medical Decision Making 07/30/19 17:34 Susan Reyna is a 28yo otherwise healthy woman who presents with headache, nausea, vomiting, diarrhea, and cramping abdominal pain since this morning. 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 - Most likely viral illness such as gastroenteritis. No focal tenderness suggesting cholecystitis, appendicitis, pancreatitis. Low suspicion for ectopic as main complaint is nausea/vomiting/diarrhea rather than pain. No respiratory symptoms or fever suggesting influenza. - CBC, CMP, lactate, lipase, UA, UCx, urine preg - IVF, zofran, famotidine, acetaminophen 07/30/19 18:37 - Pt feels significantly improved. No longer has abdominal pain, headache, or nausea - UA negative for infection, but 3+ ketones. Likely has not been eating, may be mildly dehydarted. Will reassess after 1L IVF, but may need 2nd bolus - Remainder of labs pending. 07/30/19 19:11 - Labs unremarkable - Will PO challenge 07/30/19 20:21 - Successfully drank juice, ate crackers - HR still elevated at 110. Will give 2nd bolus and reassess Discussed with Sarah Saeed and Phillip Wilson PGY2 Discharge - Discharge Information Problems reviewed: Yes Clinical Impression/Diagnosis: Nausea vomiting and diarrhea Condition: Stable Disposition: HOME - Admission No - Additional Discharge Information Prescriptions: Ondansetron [Zofran *Odt*] 4 mg SL Q6H PRN #30 od.tablet PRN Reason: Nausea And/Or Vomiting - Follow up/Referral - Patient Discharge Instructions Patient Printed Discharge Instructions: DI for Viral Gastroenteritis -- Adult, Gastroenteritis Diet Additional Instructions: Discharge Instructions: You were seen in the emergency department for nausea, vomiting, and diarrhea. Your symptoms are most likely caused by a viral infection, and you should feel better within a week without any additional treatment. Home Care and Follow Up: - You have been precribed a nausea medication called Zofran (ondansetron). This may be taken every 6 hours if needed for nausea and/or vomiting. - Make sure you are drinking plenty of fluids while you are sick. Increase your normal fluid intake. It is OK if you do not feel like eating as long as you are staying well hydrated - You may use medications such as acetaminophen (Tylenol) 650-1000mg or ibuprofen (Advil, Motrin) 400-600mg every 6 hours as needed for pain or fever over 101F - Make sure you are washing your hands frequently to prevent spreading the infection. - You should feel better within a week, though cough can sometimes last longer. If you are not feeling better in a week, follow up with your primary doctor. If you need to see a new doctor, you have been referred to the [facility] care [place]. - Seek immediate care if you have worsening symptoms, you are unable to stay hydrated, you develop high fevers over 104F that do not come down with medication, or you have any other medical emergency. - Post Discharge Activity
[2019-07-30] MEDS ORDERED: ONDANSETRON 4 MG/2 ML VIAL ONE (17:35)
[2019-07-30] MEDS ORDERED: ACETAMINOPHEN 1000 MG/100 ML VIAL (NON FORMULARY) IVPB ONE (17:36)
[2019-07-30] MEDS ORDERED: ACETAMINOPHEN INJECTION 100 ML IVPB ONE (17:38)
[2019-07-30 18:08] LABS: URINE APPEARANCE CLEAR; URINE BILIRUBIN NEGATIVE (NEGATIVE); URINE COLOR YELLOW; URINE GLUCOSE (UA) NEGATIVE (NEGATIVE); URINE KETONE 3+ (NEGATIVE); URINE LEUK ESTERASE NEGATIVE (NEGATIVE); URINE NITRITE NEGATIVE (NEGATIVE); URINE PROTEIN NEGATIVE (NEGATIVE); URINE UROBILINOGEN 0.2 mg/dL (0.2-1.0)
--- NOTE | 2019-07-30 18:16 | PDOC ---
Attending Attestation - Resident Resident Name: SteveLisa - ED Attending Attestation I have performed the following: I have examined & evaluated the patient, The case was reviewed & discussed with the resident, I agree w/resident's findings & plan, Exceptions are as noted - HPI HPI: 07/30/19 18:11 28 F with no PMH presents to ED with N+V+D. Pt states that her symptoms started this morning. She endorses chills without fever. Endorses abdominal cramps associated with diarrhea. Denies any abdominal pain currently. - Physicial Exam PE: 07/30/19 18:15 "GENERAL: Awake, alert, and fully oriented, in no acute distress. HEAD: No signs of trauma EYES: PERRLA, EOMI, sclera anicteric, conjunctiva clear ENT: Auricles normal inspection, hearing grossly normal, nares patent, oropharynx clear without exudates. Moist mucosa NECK: Nontender, no stepoffs, Normal ROM, supple, no lymphadenopathy, JVD, or masses LUNGS: Breath sounds equal, clear to auscultation bilaterally. No wheezes, and no crackles HEART: Regular rate and rhythm, normal S1 and S2, no murmurs, rubs or gallops ABDOMEN: Soft, nontender, normoactive bowel sounds. No guarding, no rebound. No masses EXTREMITIES: Normal range of motion, no edema. No clubbing or cyanosis. No cords, erythema, or tenderness NEUROLOGICAL: Cranial nerves II through XII intact. 5/5 strength and sensation in all extremities, Normal speech, normal gait, normal cerebellar function SKIN: Warm, Dry, normal turgor, no rashes or lesions noted. - Medical Decision Making 07/30/19 18:16 28 F with N+V+D. Likely viral gastroenteritis. Pt with completely benign abdominal exam. - Labs - GI cocktail 07/30/19 19:00 Labs wnl Pt is well appearing, with normal vitals. Clinically stable for DC at this time. I discussed the physical exam findings, ancillary test results and final diagnoses with the patient. I answered all of the patient's questions. The patient was satisfied with the care received and felt comfortable with the discharge plan and treatment plan. The patient agrees to follow up with the primary care physician within 24-72 hours.
[2019-07-30 18:18] LABS: BASO % 0.3 % (0-2.0); EOS % 0.4 % (0-4.5); HEMOGLOBIN 12.2 GM/dL (10.7-15.3); LYMPH % 16.9 % (8-40); MCH 29.7 pg (25.7-33.7); MCHC 33.8 g/dl (32.0-36.0); MEAN CELL VOLUME 87.9 fl (80-96); MEAN PLT VOLUME 9.6 fl (7.5-11.1); MONO % 5.7 % (3.8-10.2); NEUT % 76.7 % (42.8-82.8); PLATELET COUNT 240 K/MM3 (134-434); WHITE BLOOD COUNT 6.9 K/mm3 (4.0-10.0)
[2019-07-30 18:50] LABS: ALBUMIN 3.4 g/dl (3.4-5.0); BILIRUBIN,TOTAL 0.8 mg/dL (0.2-1); BLOOD UREA NITROGEN 9.6 mg/dL (7-18); CALCIUM 8.6 mg/dL (8.5-10.1); CREATININE 0.7 mg/dL (0.55-1.3); POTASSIUM 3.7 mmol/L (3.5-5.1); TOT PROT 6.8 g/dl (6.4-8.2)
[2019-07-30 20:13] VITALS: TEMP 98.6
[2019-07-30 21:18] VITALS: BP 116/79; PULSE 97
--- NOTE | 2019-08-02 14:15 | EKG ---
Test Reason : Blood Pressure : / mmHG Vent. Rate : 110 BPM Atrial Rate : 110 BPM P-R Int : 146 ms QRS Dur : 088 ms QT Int : 336 ms P-R-T Axes : 054 005 009 degrees QTc Int : 454 ms SINUS TACHYCARDIA OTHERWISE NORMAL ECG WHEN COMPARED WITH ECG OF 23-MAR-2019 09:57, SC INTERVAL HAS INCREASED VENT. RATE HAS INCREASED BY 52 BPM QT HAS LENGTHENED Confirmed by Nunu Virk ([id number]) on 08/02/2019 2:14:36 PM Referred By: Confirmed By:Nunu Virk
== END 2019-07-30 21:19 | disposition home or self-care (01) ==
LOC: JER 16:30
PROC: 3E033GC Introduction of Other Therapeutic Substance into Peripheral Vein, Percutaneous Approach (ICD-10-PCS; principal; 2019-07-30)
PROC: 3E033GC Introduction of Other Therapeutic Substance into Peripheral Vein, Percutaneous Approach (ICD-10-PCS; 2019-07-30)
PROC: 3E033NZ Introduction of Analgesics, Hypnotics, Sedatives into Peripheral Vein, Percutaneous Approach (ICD-10-PCS; 2019-07-30)
DX: A08.4 Viral intestinal infection, unspecified (principal); B97.89 Other viral agents as the cause of diseases classified elsewhere; Z88.0 Allergy status to penicillin
CPT/HCPCS: 36415; 80053; 81003; 83605; 83690; 84703; 85025; 87086; 93005; 93010; 96365; 96375; 99284-25; J0131